=== PATIENT | female | born 1945 | race Caucasian/White ===

== ENCOUNTER → 2019-05-17 | Outpatient (CLI) | payer MEDICARE, OTHER ==
[2019-05-17] MEDS: SOD CHLORIDE 0.9% 100 ML (12:11)
[2019-05-17] MEDS: IOHEXOL 300MG/ML 150 ML BTL (12:11)
== END | disposition home or self-care (01) ==
LOC: C/S 11:07
DX: C50.911 Malignant neoplasm of unspecified site of right female breast (principal); J91.0 Malignant pleural effusion; R18.0 Malignant ascites; R16.0 Hepatomegaly, not elsewhere classified
CPT/HCPCS: 71260; 74160